=== PATIENT | male | born 1970 | race Caucasian/White ===

== ENCOUNTER 2024-08-18 07:49 | Outpatient (CLI) | payer BC, SELFPAY ==
--- NOTE | 2024-09-10 17:31 | P.SLEEP_ITS ---
Sleep Study Date of Study: 08/18/24 Ordering Provider: MARIPOSA Bunn Interpreting Physician: Felipa Acuna MD Sleep Study Type: Split Polysomnogram Height: 1.8 m Weight: 106.594 kg Body Mass Index: 32.8 Neck Circumference (inches): 18 [place]: 9 Reason for Sleep Study Known obstructive sleep apnea * 07/31/2020, home sleet test from [facility], AHI 8.5, minimum saturation 82% His machine broke, he is being retested. He has difficulty sleeping through the night, mind racing. Sleep History Adriano Goodwin is a 54-year-old man with known obstructive sleep apnea, has used PAP in the past. His machine is currently broken so he was not using it prior to this study. He is using eszopiclone 3 mg/Lunesta , to help with his sleep. He constantly awakens from sleep feeling short of breath. He frequently awakens at night with heartburn, belching or coughing. He frequently snores loudly enough that others complain about it. He frequently has difficulty sleeping with a cold, frequently wakes up gasping for breath at night and frequently has breathing problems at night reported to him by others. He frequently sweats excessively at night and notices his heart pounding or beating irregularly at night. He rarely falls asleep during the day, never involuntarily or while driving. He does not have loss of muscle tone with strong emotion. He frequently has daytime difficulties due to excessive sleepiness. He works for the [employer]. He frequently feels paralyzed on waking or falling asleep. He constantly has vivid dreamlike scenes upon awakening or falling asleep. He rarely feels afraid to go to sleep. He frequently has nightmares. He always remembers his dreams. He constantly has racing thoughts. He frequently feels sad or depressed. He constantly has anxiety. He constantly notices parts of his body jerking and constantly kicks at night. He frequently has uncomfortable crawling and aching feelings in his legs. He frequently has leg pain at night. He frequently has morning jaw pain. He constantly grinds his teeth at night. He frequently is bothered by pain during the day and frequently is awakened by pain at night. He constantly wakes up feeling stiff in the morning with sore achy muscles and pain in the neck and spine. He has fatigue, concentration difficulties and memory problems. He takes antacids regularly. Normal bedtime is between 9:00 p.m. and 10:00 p.m., falling asleep within 30 minutes but sometimes taking up to an hour to fall asleep. He typically wakes up every night and may stay awake between 1 and 2 hours. Sometimes it is difficult for him to return to sleep. His normal wake time is between 4:00 a.m. and 5:00 a.m.. He keeps the same schedule on weekends. He estimates getting between 2 and 5 hours of sleep at night. He does not take naps in the afternoon or evening. A short nap lasting 10-15 minutes is not refreshing. He is drowsy for 3 hours after waking. Habits: Tobacco: never smoker Caffeine: 200 mg/day Alcohol: variable amount, average 4 drinks per week Recreational substances: no PMFSH Past Medical History Medical History (Updated 09/14/24 @ 11:08 by Felipa Acuna MD) Anxiety Arthritis Elevated liver enzymes Family history of colon cancer HTN (hypertension) Hyperlipidemia Insomnia Major depressive disorder, recurrent episode, severe with anxious distress HERMAN (obstructive sleep apnea) Pes planus of both feet Surgical History Surgical History History of hip replacement -2013 Family History Family History Mother Hypertension, Onset Age: 69 Cerebrovascular accident, Onset Age: 69 Father Carcinoma of colon Depression Grandparent Diabetes mellitus Depression Other Family history of mental disorder Social History Social History Social History: 06/30/24 very confident with medical forms Assistance provided with care for elder or disabled, job search training and transportation. 08/03/24 patient declined SDOH Smoking status: Never smoker Second hand tobacco smoke exposure: No Alcohol intake: current Drinks per week: 4 Alcohol use details: beer Substance use: never Substance use type: does not use Do You Feel Safe in your Home?: Yes Lack of Transportation: No Lack of Food: Never True Current Housing: I Have Housing Concerned About Future Housing: No Difficulty Paying Gas/Electric Bills: No Difficulty Paying for Meds: No Currently Unemployed: No Education: Trade/Vocational Certificate Difficulty w/ Childcare or Family Care: No Living arrangements: with family Occupation/Education: occupation Additional occupation/education comments: [employer] Gender identity (if verbalized by the patient): Male Spiritual care concerns: No Agree to blood products: Yes Medications Home Medications Medication Instructions Recorded Confirmed Type aluminum chloride 20 % topical 1 applic topical WEEKLY PRN 08/30/23 08/11/24 Rx solution (Drysol) excessive sweating #37.5 mL propranolol 20 mg tablet See Rx Instructions .Route 06/05/24 08/11/24 Rx .COMPLEX #180 tabs celecoxib 200 mg capsule (Celebrex) 200 mg PO DAILY PRN 07/03/24 08/11/24 History esomeprazole magnesium 40 mg 40 mg PO DAILY #90 caps 07/03/24 08/11/24 Rx capsule,delayed release (Nexium) fluoxetine 10 mg capsule (Prozac) 10 mg PO DAILY #90 caps 07/03/24 08/11/24 Rx amlodipine 10 mg tablet 10 mg PO DAILY #90 tabs 08/11/24 08/11/24 Rx clonazepam 0.5 mg tablet 0.5 mg PO DAILY PRN anxiety #30 08/11/24 08/11/24 Rx tabs eszopiclone 3 mg tablet 3 mg PO QHS #30 tabs 08/11/24 08/11/24 Rx Sleep Procedure A split night polysomnogram using the [employer] multi-channel system recorded the standard physiologic parameters including EEG, EOG, submentalis EMG, anterior tibialis EMG, EKG, body position, nasal and oral airflow using nasal pressure sensor and thermistor. Respiratory parameters of chest and abdominal movements were recorded with Respiratory Inductance Plethysmography belts. Oxygen saturation was recorded by pulse oximetry. Video monitoring was also performed. Sleep stages, periodic limb movements, and EEG arousals were scored in 30 second epochs according to the criteria of the AASM Scoring Manual. The Apnea-Hypopnea Index was calculated using CMS guidelines for definition of hypopnea while scoring respiratory events. After the baseline portion the patient met criteria for a titration with an AHI of 21.0 and desaturation to 88%. He used a medium ResMed AirFit F20 fullface mask and heated humidity, initial pressure was 5 cm, titrated to 7 cm and a final pressure of 9 cm. At 9 cm of water pressure, sleep was consolidated, he had REM in the right lateral position, spending 130.5 minutes in bed, 56 minutes awake, 54.5 minutes in non-REM and 19.5 minutes in REM. Sleep efficiency was 56.7%. The residual apnea-hypopnea index was 0 and the lowest saturation was 90%. Sleep Architecture During the diagnostic portion of the study, the total recording time was 174.3 minutes. The total sleep time was 134.5 minutes. Sleep latency was 14.8 minutes. REM latency was 152.5 minutes. Sleep Efficiency was 77.2%. The patient had 15 awakenings for an awakening index of 6.7. Wake after sleep onset time was 25.0 minutes. The patient spent 32.0 minutes, 23.8% of total sleep time in Stage N1. The patient spent 99.5 minutes, 74.0% in Stage N2. The patient spent 0.0 minutes, 0.0% in Stage N3. The patient spent 3.0 minutes, 2.2% in Stage REM sleep. At 12:29:38 AM the patient was placed on PAP treatment and was titrated at pressures ranging from 5* cm/H20 with supplemental oxygen at - up to 9* cm/H20 with supplemental oxygen at -. During the treatment portion of the study, the total recording time was 299.1 minutes. The total sleep time was 232.0 minutes. Sleep latency was 3.0 minutes. REM latency was 55.5 minutes. Sleep Efficiency was 77.6%. Wake after Sleep Onset time was 64.0 minutes. The patient spent 15.5 minutes, 6.7% of total sleep time in Stage N1. The patient spent 156.0 minutes, 67.2% in Stage N2. The patient spent 0.0 minutes, 0.0% in Stage N3. The patient spent 60.5 minutes, 26.1% in Stage REM. Respiratory Analysis Baseline During the diagnostic portion of the study, the patient had 28 hypopneas, 19 obstructive apneas, no mixed or central apneas for an overall Apnea Hypopnea Index of 21.0 events per hour. The REM Apnea Hypopnea Index was 100.0. The NREM Apnea Hypopnea Index was 19.2. The patient had a Central Apnea Hypopnea Index of 0. There were 33 Respiratory Effort Related Arousals resulting in a RERA index of 14.7 events per hour. The Respiratory Disturbance Index is 35.7 events per hour. There was no evidence of José Manuel-Clancy Respirations. Titration During the treatment portion of the study, the patient had 6 hypopneas, o obstructive, mixed, or central apneas for an overall Apnea Hypopnea Index of 1.6 events per hour. The REM Apnea Hypopnea Index was 6.0. The NREM Apnea Hypopnea Index was 0. The patient had a Central Apnea Hypopnea Index of 0. There were 2 Respiratory Effort Related Arousals resulting in a RERA index of 0.5 events per hour. The Respiratory Disturbance Index is 2.1 events per hour. There was no evidence of José Manuel-Clancy Respirations. Arousals Baseline During the diagnostic portion of the study, there were a total of 104 arousals for an arousal index of 46.4. There were 49 respiratory arousals for an index of 21.9. There were no periodic limb movement arousals.There were 5 isolated limb movement arousals for an index of 2.2. There were 47 spontaneous arousals for an index of 21.0. Titration During the treatment portion of the study, there were a total of 47 arousals for an index of 12.2. There were 2 respiratory arousals for an index of 0.5. There was 1 periodic limb movement arousal for an index of 0.3. There were 9 isolated limb movement arousals for an index of 2.3. There were 37 spontaneous arousals for an index of 9.6. Periodic Limb Movements Baseline During the diagnostic portion of the study, the patient had 16 isolated limb movements with an index of 7.1. The patient had no periodic limb movements. The patient had a total of 16 limb movements with a total limb movement index of 7.1. Titration During the treatment portion of the study, the patient had 24 isolated limb movements with an index of 6.2. The patient had 12 periodic limb movements with an index of 3.1. The patient had a total of 36 limb movements with a total limb movement index of 9.3. Oximetry Data Baseline During the diagnostic portion of the study, the patient had an average oxygen saturation of 93.3% in wake with a minimum oxygen saturation of 89% and a maximum oxygen saturation of 97%. The patient had an average oxygen saturation of 93% in sleep with a minimum oxygen saturation of 88% and a maximum oxygen saturation of 96%. The patient had 36 oxygen desaturations resulting in an Oxygen Desaturation Index of 16.1. The patient spent 0.2 minutes, 0.1% of total sleep time with an oxygen saturation less than 88%. Titration During the treatment portion of the study, the patient had an average oxygen saturation of 94.9% in wake with a minimum oxygen saturation of 92% and a maxi mum oxygen saturation of 98%. The patient had an average oxygen saturation of 94.3% in sleep with a minimum oxygen saturation of 87% and a maximum oxygen saturation of 97%. The patient had 6 oxygen desaturations resulting in an Oxygen Desaturation Index of 1.6. The patient spent 0.4 minutes, 0.1% of total sleep time with an oxygen saturation less than 88%. Snoring Profile Snoring was moderate during the baseline, eliminated during the titration. Cardiac Profile Baseline During the diagnostic portion of the study, the EKG showed normal sinus rhythm. The average pulse rate was 76.8 bpm. The minimum pulse rate was 67 bpm, maximum pulse rate was 93 bpm. No arrhythmias noted. Titration During the treatment portion of the study, the EKG showed normal sinus rhythm. The average pulse rate was 70.0 bpm. The minimum pulse rate was 60 bpm. The maximum pulse rate was 97 bpm. without arrhythmia. EEG Profile EEG was unremarkable, no evidence of seizures. Assessment and Plan Assessment and Plan (1) HERMAN (obstructive sleep apnea): Code(s): G47.33 - Obstructive sleep apnea (adult) (pediatric) Status: Acute Assessment and Plan: This patient has a known history of obstructive sleep apnea syndrome. The split night study on August 18, 2024 shows moderate obstructive sleep apnea, an apnea-hypopnea index of 21 without significant REM on the baseline, moderate snoring and desaturation 88% successfully treated using CPAP 9 cm of water pressure and a medium ResMed AirTouch F20 fullface mask with heated humidity. At 9 cm CPAP, the patient had a residual apnea-hypopnea index of 0. REM occurred in the right lateral position. The patient should be prescribed this ResMed equipment as well as tubing, filters and reservoir. This should be used with all episodes of sleep. Compliance should be reviewed within 31-90 days of starting therapy for usage greater than 4 hours per night greater than 70% of the nights. The patient should be asked about symptoms such as excessive daytime sleepiness, quality of sleep, decreased nocturia, increased mental functioning such as memory, mood, and concentration. I also recommend asking about grinding his teeth and jaw pain. Untreated obstructive sleep apnea can provoke bruxism. He may have increased symptoms while not using PAP therapy. He may also have bruxism as an independent problem. Patient needs to be told to have his dentist exam in his teeth for evidence of wear and tear on his enamel. He may also need additional treatment such as a mouth guard to protect his teeth. BMI is 32. Weight management is advised. Clinical data suggests that weight loss of 10% can reduce the severity of respiratory events and snoring and improve AHI by as much as 25%. (2) Restless leg syndrome: Code(s): G25.81 - Restless legs syndrome Status: Acute Assessment and Plan: The patient has a history of uncomfortable feelings in his legs at night and frequent kicking. He did not kick excessively on this test nor did he have significant arousals due to kicking at night. If he continues to have uncomfortable feelings in his legs at night, I recommend checking a ferritin level. Ferritin level is indicated to exclude iron deficiency anemia as a contributing factor. Ferritin should be 75 ng/mL or greater. If ferritin is below this, iron supplementation should be given to achieve ferritin of 75 ng/mL. There are nonpharmacologic methods to treat limb movements including daily exercise, stretching calf muscles before bed, avoiding excessive amounts of caffeine and alcohol, vitamin B supplementation, magnesium lotion massaged into legs before bed, and use of a weighted blanket. Pharmacologic therapy is very effective for restless legs syndrome and limb movements during sleep and may include [id number] voltage-gated calcium channel ligands such as gabapentin which is preferable to dopaminergic agents which can have augmentation. Other treatments can include opioids and benzodiazepines. Data The data obtained during this sleep study is adequate for interpretation. Certification This sleep study has been reviewed by a board certified sleep medicine physician.
[2024-09-14 11:03] VITALS: BMI 32.8
== END 2024-08-19 06:36 | disposition home or self-care (01) ==
LOC: ANHCSM 07:50
PROVIDERS: PCP Nurse Practitioner Family; Visit Provider Nurse Practitioner Family
DX: G47.33 Obstructive sleep apnea (adult) (pediatric) (principal); G25.81 Restless legs syndrome
CPT/HCPCS: 95811